=== PATIENT | male | born 1965 | race African-American/Black ===

== ENCOUNTER 2022-01-27 13:33 | Emergency (ER) | payer MEDICAID ==
[~2022-01-27] VITALS: Ht 185.4 cm; Wt 137.0 kg
[2022-01-27] MEDS ORDERED: KETOROLAC 30MG/ML VIAL IV STA (13:58)
[2022-01-27] MEDS ORDERED: LIDOCAINE 5% PATCH TOP SCH (14:15)
[2022-01-27 14:22] LABS: EOSINOPHILS % 1.7 % (0.0-5.0); HEMATOCRIT. 43.8 % (42.0-52.0); HEMOGLOBIN. 14.3 g/dL (14.0-18.0); LYMPHOCYTES % 19.7 % (20.0-50.0); MEAN CORPUSCULAR HEMOGLOBIN 28.5 pg (28.0-32.0); MEAN CORPUSCULAR VOLUME 87.1 fL (80.0-94.0); MEAN PLATELET VOLUME 6.9 fl (7.4-10.4); MONOCYTES % 8.7 % (2.0-8.0); NEUTROPHILS % 68.9 % (40.0-76.0); PLATELET 388 x1000/uL (130-400); RED BLOOD CELL COUNT 5.03 mill/uL (4.7-6.1); RED CELL DISTRIBUTION WIDTH 15.7 % (11.6-14.6)
[2022-01-27 14:36] LABS: CHLORIDE 105 mEq/L (98-107)
[2022-01-27 18:08] LABS: CLARITY URINE CLEAR (CLEAR); COLOR URINE YELLOW (YELLOW)
[2022-01-27 18:09] LABS: KETONES URINE NEGATIVE (NEGATIVE); LEUKOCYTE ESTERASE URINE NEGATIVE (NEGATIVE); NITRITE URINE NEGATIVE (NEGATIVE); OCCULT BLOOD URINE NEGATIVE (NEGATIVE); PROTEIN URINE TRACE (NEGATIVE); UROBILINOGEN URINE 0.2 E.U./dL (0.2-1.0)
[2022-01-27] MEDS ORDERED: HYDROCODONE/ACETAMINOPHEN 7.5/325MG TABLET PO ONE (18:45)
[2022-01-27 19:09] VITALS: BP 122/85
[2022-01-27] MEDS ORDERED: METH-653 MT (19:26)
== END 2022-01-27 14:05 | disposition home or self-care (01) ==
LOC: ER 13:47
DX: M54.50 Low back pain, unspecified (principal); E78.00 Pure hypercholesterolemia, unspecified; I11.0 Hypertensive heart disease with heart failure; I50.9 Heart failure, unspecified; K42.9 Umbilical hernia without obstruction or gangrene; E66.01 Morbid (severe) obesity due to excess calories; Z68.39 Body mass index [BMI] 39.0-39.9, adult
CPT/HCPCS: 36415; 74176; 80053; 81003; 83690; 84484; 85025; 93005; 96374; 99285; J1885; Z7610